=== PATIENT | female | born 1945 | race Asian ===

== ENCOUNTER → 2017-05-20 | Outpatient (CLI) | payer OTHER | LOC: RAD 00:52 | DX: Z12.31 Encounter for screening mammogram for malignant neoplasm of breast (principal); M85.89 Other specified disorders of bone density and structure, multiple sites; Z78.0 Asymptomatic menopausal state ==

== ENCOUNTER 2017-07-12 08:40 | Emergency (ER) | payer OTHER ==
[~2017-07-12] VITALS: Ht 154.9 cm; Wt 49.9 kg
[2017-07-12 09:15] LABS: ABSOLUTE NEUTROPHILS 5.2 thou/uL (1.4-8.2); BASOPHILS 0.6 % (0.0-2.0); EOSINOPHILS 0.1 % (0.0-3.0); HEMATOCRIT 40.5 % (37.0-47.0); HEMOGLOBIN 13.6 gm/dL (12.0-15.0); LYMPHOCYTES 21.1 % (24.0-44.0); MCH 29.8 pg (26.0-34.0); MCHC 33.7 g/dL (28.0-37.0); MCV 88.4 fL (80.0-100.0); MONOCYTES 4.6 % (1.0-8.0); PLATELET COUNT 218 thou/uL (150-400); POLYS 73.6 % (36.0-66.0); RBC 4.58 mil/uL (4.20-5.00); RDW 13.6 % (10.5-14.5); WBC 7.1 thou/uL (4.0-11.0)
[2017-07-12 09:24] LABS: CALCIUM 9.3 mg/dL (8.5-10.1); CREATININE 0.9 mg/dL (0.6-1.0); POTASSIUM 3.2 mmol/L (3.5-5.1)
[2017-07-12 09:30] LABS: ALBUMIN 3.6 g/dL (3.4-5.0); DIRECT BILIRUBIN 0.1 mg/dL (<0.1-0.3); TOTAL BILIRUBIN 0.4 mg/dL (<0.1-1.0); TOTAL PROTEIN 7.1 g/dL (6.4-8.2)
[2017-07-12] MEDS ORDERED: OSELB75 PO (09:37)
[2017-07-12] MEDS ORDERED: PROAIR HFA8.5 GM INH (09:38)
[2017-07-12] MEDS ORDERED: TESSALON PERLE100 MG PO (09:38)
[2017-07-12 09:49] LABS: URINE BILIRUBIN NEGATIVE (Negative); URINE BLOOD TRACE (Negative); URINE CLARITY CLEAR; URINE COLOR YELLOW; URINE GLUCOSE-RANDOM* NEGATIVE (Negative); URINE KETONES NEGATIVE (Negative); URINE LEUKOCYTES NEGATIVE (Negative); URINE NITRITE NEGATIVE (Negative); URINE PROTEIN (DIPSTICK) NEGATIVE (Negative); URINE UROBILINOGEN 0.2 E.U./dl (0.2-1.0)
[2017-07-12] MEDS ORDERED: LIPITOR10 MG PO (10:04)
[2017-07-12] MEDS ORDERED: CENTRUM SILVER1 EAC4 PO (10:04)
[2017-07-12] MEDS ORDERED: ASPIR 8181 MG PO (10:04)
[2017-07-12] MEDS ORDERED: ALENDRONATE SOD10 MG PO (10:06)
[2017-07-12] MEDS ORDERED: LISINOPRIL-HCT1 EACH PO (10:06)
[2017-07-12] MEDS ORDERED: TUSSIONEX PENN115 ML PO (10:16)
== END 2017-07-12 11:54 | disposition home or self-care (01) ==
LOC: ER 08:40
PROVIDERS: Emergency Medicine
DX: J06.9 Acute upper respiratory infection, unspecified (principal); E87.6 Hypokalemia

== ENCOUNTER → 2018-07-28 | Outpatient (CLI) | payer OTHER ==
[~2018-07-28] MED LIST: ALENDRONATE SOD10 MG PO; ASPIR 8181 MG PO; CENTRUM SILVER1 EAC4 PO; LIPITOR10 MG PO; LISINOPRIL-HCT1 EACH PO; OSELB75 PO; PROAIR HFA8.5 GM INH; TESSALON PERLE100 MG PO; TUSSIONEX PENN115 ML PO
== END ==
LOC: RAD 01:13
DX: Z12.31 Encounter for screening mammogram for malignant neoplasm of breast (principal)

== ENCOUNTER 2019-01-21 20:09 | Emergency (ER) | payer OTHER ==
[~2019-01-21] VITALS: Ht 157.5 cm; Wt 59.0 kg
[2019-01-21] MEDS ORDERED: IBUPROFEN 600600 M1 PO (22:43)
[2019-01-21] MEDS ORDERED: SENNA-DOCUSATE1 EAC1 PO (22:43)
[2019-01-21] MEDS ORDERED: NORCO 5-325 TA1 EAC1 PO (22:43)
[2019-01-21 22:59] VITALS: BP 138/70
== END 2019-01-21 22:50 | disposition home or self-care (01) ==
LOC: ER 20:09
DX: S82.61XA Displaced fracture of lateral malleolus of right fibula, initial encounter for closed fracture (principal); I10 Essential (primary) hypertension; E78.5 Hyperlipidemia, unspecified; M81.0 Age-related osteoporosis without current pathological fracture; Z88.6 Allergy status to analgesic agent; W01.0XXA Fall on same level from slipping, tripping and stumbling without subsequent striking against object, initial encounter; Y93.89 Activity, other specified; Y92.89 Other specified places as the place of occurrence of the external cause; Y99.8 Other external cause status

== ENCOUNTER → 2021-07-10 | Outpatient (CLI) | payer OTHER ==
[~2021-07-10] MED LIST changes: +IBUPROFEN 600600 M1 PO; +NORCO 5-325 TA1 EAC1 PO; +SENNA-DOCUSATE1 EAC1 PO
== END ==
LOC: BC 08:41
PROVIDERS: ATTEND Family Medicine
DX: Z12.31 Encounter for screening mammogram for malignant neoplasm of breast (principal)

== ENCOUNTER → 2021-07-24 | Outpatient (CLI) | payer OTHER | LOC: BC 08:47 | PROVIDERS: ATTEND Family Medicine | DX: R92.1 Mammographic calcification found on diagnostic imaging of breast (principal) ==

== ENCOUNTER → 2021-07-31 | Outpatient (CLI) | payer OTHER ==
--- NOTE | 2021-08-03 17:06 | PATH ---
[facility] [address] [place] [address] PATHOLOGY RPT PROCEDURE Name: KB OWENS Room #: REG [facility] M.R.#: [id number] Admission: 07/31/21 Date of : 43 Discharge: Report #: [id number] Path Case #: [id number] [facility] Accession Number: [id number] . 01 Material submitted: . breast - RIGHT BREAST CALCIFICATIONS. Modifiers: right . 02 Diagnosis: Breast "right breast calcifications", needle biopsy: - Focal, sclerotic fibroadenomas, with associated coarse and fine micro-calcification. - Fibrocystic changes, including usual ductal hyperplasia. - Negative for atypia and malignancy. (MLK:[place]; 08/03/2021) QMS 08/03/2021 1628 Local . 02 Comment: The case is seen in co-review, with consensus, by Dr. Livan Chen on 08/03/2021. . 02 Electronically signed: . Lilliana Clark MD, Pathologist NPI- [id number] . 01 Gross description: . The specimen is received in formalin, labeled "Kb Owens right". The source is additionally listed on the requisition as "right breast calcifications". Received are multiple needle cores of yellow-pink fibrofatty breast tissue measuring 2.3 x 1.2 x 0.3 cm in aggregate dimensions. Also received is a plastic cassette containing a single needle core of yellow-pink fibrofatty tissue measuring 2.4 x 0.8 x 0.4 cm in greatest dimensions. The tissue in the cassette is transferred to cassette A1 and the remaining tissue is submitted entirely in cassettes A2-A4. ([facility]; 07/31/2021) NRI/NRI 07/31/2021 2105 Local . 02 Pathologist provided ICD-10: N60.11, N62, N60.41 . 02 CPT . 581136 Specimen Comment: A courtesy copy of this report has been sent to [phone] Specimen Comment: [id number] Specimen Comment: Report sent to / DR VANG Performed at: [address] [place] [address] PATHOLOGY RPT PROCEDURE Name: KB OWENS A Room #: REG CL Mono#: [id number] Admission: 07/31/21 Date of : 43 Discharge: Report #: [id number] Path Case #: [id number] [facility] [address] [id number] MD Jann Monroe MD Phone: [phone] Performed at: [address] [place] [id number] [id number] MD Livan Cehn MD Phone: [phone]
== END | disposition home or self-care (01) ==
LOC: BC 08:36
PROVIDERS: ATTEND Family Medicine
DX: R92.8 Other abnormal and inconclusive findings on diagnostic imaging of breast (principal); N60.11 Diffuse cystic mastopathy of right breast; N60.41 Mammary duct ectasia of right breast; N62 Hypertrophy of breast; Z79.899 Other long term (current) drug therapy; Z88.8 Allergy status to other drugs, medicaments and biological substances